=== PATIENT | female | born 1995 | race Caucasian/White ===

== ENCOUNTER 2019-03-17 17:00 | Emergency (ER) | payer BC, MEDICAID ==
[2019-03-17] MEDS: IBUPROFEN 600 MG TAB PO (19:39)
== END 2019-03-17 21:39 | disposition home or self-care (01) ==
LOC: FTE 17:00
DX: M25.561 Pain in right knee (principal); F17.210 Nicotine dependence, cigarettes, uncomplicated
CPT/HCPCS: 29505; 73562; 99283-25